=== PATIENT | female | born 1995 | race African-American/Black ===

== ENCOUNTER 2021-10-13 08:55 | Inpatient (IN) | payer MEDICAID ==
[~2021-10-13] VITALS: Ht 157.5 cm; Wt 83.9 kg
[~2021-10-13 08:55] MED LIST: EPHEDRINE SULFATE 50MG/ML VIAL ONE; LIDOCAINE HCL 2%/EPINEPHRINE 1:100,000 20 ML VIAL INFIL ONE
[2021-10-13] MEDS ORDERED: BUTORPHANOL TARTRATE 2 MG/ML VIAL IV PRN (09:45)
[2021-10-13] MEDS ORDERED: MISOPROSTOL 200MCG TABLET VG PRN (09:45)
[2021-10-13] MEDS ORDERED: CARBOPROST TROMETHAMINE 250 MCG/ML AMPUL IM PRN (09:45)
[2021-10-13] MEDS ORDERED: DEXT 5%/LR + PITOCIN 20UNITS/L 1,000 ML IV SCH ×2 (09:45→14:45)
[2021-10-13] MEDS ORDERED: NALOXONE HCL 0.4 MG/ML 1ML VIAL IM PRN (09:45)
[2021-10-13] MEDS ORDERED: METHYLERGONOVINE MALEATE 0.2 MG/ML IM PRN (09:45)
[2021-10-13 10:18] LABS: BASOPHILS % 0.1 % (0.0-2.0); EOSINOPHILS % 0.3 % (0.0-5.0); HEMATOCRIT. 35.2 % (36.0-48.0); HEMOGLOBIN. 12.2 g/dL (12.0-16.0); LYMPHOCYTES % 10.4 % (20.0-50.0); MEAN CORPUSCULAR HEMOGLOBIN 32.8 pg (28.0-32.0); MEAN CORPUSCULAR VOLUME 94.3 fL (81.0-99.0); MEAN PLATELET VOLUME 8.7 fl (7.4-10.4); MONOCYTES % 7.9 % (2.0-8.0); NEUTROPHILS % 81.3 % (40.0-76.0); PLATELET 186 x1000/uL (130-400); RED BLOOD CELL COUNT 3.73 mill/uL (4.2-5.4); RED CELL DISTRIBUTION WIDTH 13.3 % (11.6-14.6)
[2021-10-13 10:22] LABS: CLARITY URINE CLOUDY (CLEAR); COLOR URINE YELLOW (YELLOW); KETONES URINE NEGATIVE (NEGATIVE); LEUKOCYTE ESTERASE URINE 2+ (NEGATIVE); NITRITE URINE NEGATIVE (NEGATIVE); OCCULT BLOOD URINE 2+ (NEGATIVE); PH URINE 6.5 (4.5-8.0); PROTEIN URINE TRACE (NEGATIVE); SPECIFIC GRAVITY URINE 1.015 (1.005-1.030)
[2021-10-13 10:31] LABS: PARTIAL THROMBOPLASTIN TIME 27.8 sec (23.4-31.0); PROTHROMBIN TIME 10.3 sec (9.6-11.0)
[2021-10-13] MEDS: LACTATED RINGERS 1,000 ML IV SCH ×2 (10:48→12:06)
[2021-10-13 10:50] LABS: *COCAINE SCREEN URINE NEGATIVE (NEGATIVE)
[2021-10-13 10:51] LABS: *AMPHETAMINES SCREEN URINE NEGATIVE (NEGATIVE); *BARBITURATES SCREEN URINE NEGATIVE (NEGATIVE); *BENZODIAZEPINES SCREEN URINE NEGATIVE (NEGATIVE); CANNABINOID URINE SCREEN NEGATIVE (NEGATIVE); METHADONE URINE SCREEN NEGATIVE (NEGATIVE); OPIATES URINE SCREEN NEGATIVE (NEGATIVE); PHENCYCLIDINE URINE SCREEN NEGATIVE (NEGATIVE)
[2021-10-13] MEDS ORDERED: ROPIVACAINE HCL/PF EPIDURAL 200 ML EPI SCH (11:30)
[2021-10-13] MEDS ORDERED: FENTANYL CITRATE/PF 50MCG/ML 2ML VIAL ONE (11:33)
[2021-10-13] MEDS ORDERED: ROPIVACAINE HCL/PF EPIDURAL 200 ML EPI ONE (11:33)
[2021-10-13] MEDS ORDERED: IBUPROFEN 400MG TABLET PO PRN (14:45)
[2021-10-13] MEDS ORDERED: BISACODYL 10MG SUPP PR PRN (14:45)
[2021-10-13] MEDS ORDERED: GLYCERIN/WITCH HAZEL LEAF MEDICATED PAD TOP PRN (14:45)
[2021-10-13] MEDS ORDERED: ACETAMINOPHEN WITH CODEINE 300/30MG TABLET PO PRN (14:45)
[2021-10-13] MEDS ORDERED: BENZOCAINE/LANOLIN/ALOE VERA SPRAY TOP PRN (14:45)
[2021-10-13] MEDS ORDERED: LANOLIN OINT 7GM TUBE TOP PRN (14:45)
[2021-10-13] MEDS ORDERED: HEMORRHOIDAL SUPP PR PRN (14:45)
[2021-10-13] MEDS: MAGNESIUM/ALUMINUM HYDROXIDE/SIMETHICONE 30ML UDC PO SCH ×2 (18:50→21:06)
[2021-10-13] MEDS: SIMETHICONE 80MG TABLET CHEW PO SCH ×2 (18:51→21:06)
[2021-10-13 20:00] VITALS: BP 104/58
[2021-10-13] MEDS ORDERED: TETANUS, DIPHTHERIA, PERTUSSIS VAC/PF 0.5ML (>10YR OLD) IM ONE (21:00)
[2021-10-13] MEDS: DOCUSATE SODIUM 100MG CAPSULE PO SCH (21:06)
[2021-10-13] MEDS: IBUPROFEN 800MG TABLET PO PRN (21:06)
[2021-10-14 04:00] VITALS: BP 92/41
[2021-10-14 07:27] LABS: BASOPHILS % 0.3 % (0.0-2.0); EOSINOPHILS % 0.9 % (0.0-5.0); HEMATOCRIT. 34.7 % (36.0-48.0); HEMOGLOBIN. 11.8 g/dL (12.0-16.0); LYMPHOCYTES % 13.7 % (20.0-50.0); MEAN CORPUSCULAR HEMOGLOBIN 33.3 pg (28.0-32.0); MEAN PLATELET VOLUME 8.9 fl (7.4-10.4); MONOCYTES % 9.4 % (2.0-8.0); NEUTROPHILS % 75.7 % (40.0-76.0); PLATELET 172 x1000/uL (130-400); RED BLOOD CELL COUNT 3.54 mill/uL (4.2-5.4); RED CELL DISTRIBUTION WIDTH 13.7 % (11.6-14.6)
[2021-10-14 08:00] VITALS: BP 106/63
[2021-10-14] MEDS: FERROUS SULFATE 325MG TABLET PO SCH ×3 (09:32→13:00)
[2021-10-14] MEDS: PRENATAL VIT/FE FUMARATE/FA TABLET PO SCH (09:32)
[2021-10-14] MEDS: SIMETHICONE 80MG TABLET CHEW PO SCH ×4 (09:32→19:58)
[2021-10-14] MEDS: IBUPROFEN 800MG TABLET PO PRN ×2 (09:32→19:59)
[2021-10-14] MEDS: MAGNESIUM/ALUMINUM HYDROXIDE/SIMETHICONE 30ML UDC PO SCH ×2 (12:30→20:00)
[2021-10-14 16:00] VITALS: BP 104/56
[2021-10-14 20:00] VITALS: BP 96/51
[2021-10-14] MEDS: DOCUSATE SODIUM 100MG CAPSULE PO SCH (20:00)
[2021-10-15 04:00] VITALS: BP 106/65
[2021-10-15 08:00] VITALS: BP 94/61
[2021-10-15] MEDS: PRENATAL VIT/FE FUMARATE/FA TABLET PO SCH (09:34)
[2021-10-15] MEDS ORDERED: FERR-63 PO (09:53)
[2021-10-15] MEDS ORDERED: MULT-1146 MT (09:53)
[2021-10-15] MEDS ORDERED: IBUP-2030 PO (09:53)
== END 2021-10-15 12:34 | disposition home or self-care (01) | DRG 560 ==
LOC: 8 EST LDRP 08:55 → OBSVTOIN 08:55 → 8EST 16:46
PROVIDERS: ADMIT Obstetrics & Gynecology; ATTEND Obstetrics & Gynecology
PROC: 10E0XZZ Delivery of Products of Conception, External Approach (ICD-10-PCS; principal; 2021-10-13)
PROC: 3E0R3BZ Introduction of Anesthetic Agent into Spinal Canal, Percutaneous Approach (ICD-10-PCS; 2021-10-13)
PROC: 00HU33Z Insertion of Infusion Device into Spinal Canal, Percutaneous Approach (ICD-10-PCS; 2021-10-13)
DX: O87.0 Superficial thrombophlebitis in the puerperium (principal); Z37.0 Single live birth; Z20.822 Contact with and (suspected) exposure to COVID-19; Z3A.39 39 weeks gestation of pregnancy
CPT/HCPCS: 36415; 80305; 81003; 85025; 86592; 86703; 86850; 86900; 87340; 87426; 90715; 99281; J2590; J2795; J3010; J3490; J7120